=== PATIENT | female | born 1945 | race Caucasian/White ===

== ENCOUNTER → 2023-12-01 11:35 | Outpatient (REF) | payer MEDICARE, BC, SELFPAY ==
[2023-12-01 19:45] LABS: Urine Albumin Negative (Neg - Trace); Urine Bilirubin Negative (Negative); Urine Character Clear (Clear); Urine Color Yellow; Urine Glucose Negative (Negative); Urine Ketone Negative (Negative); Urine Leukocyte 2+ (Negative); Urine Nitrite Negative (Negative); Urine Occult Blood Negative (Negative); Urine Urobilinogen Negative (Neg - 1+)
[2023-12-01 20:03] LABS: Urine Bacteria Few (Negative); Urine Red Blood Cell 0-2 /HPF (0-2)
== END ==
LOC: CLAB 11:35
PROVIDERS: ATTENDING PHYSICIAN Physician Assistant
DX: R35.0 Frequency of micturition (principal)
CPT/HCPCS: 81003; 81015; 87086

== ENCOUNTER → 2023-12-11 08:47 | Outpatient (REF) | payer MEDICARE, BC, SELFPAY ==
[2023-12-11 10:09] LABS: % Basophils 0.7 % (0-2); % Eosinophils 3.1 % (0-6); % Immature Granulocytes 0.3 % (0-0.5); % Lymphocytes 23.7 % (20.5-51.1); % Monocytes 8.6 % (1.7-9.3); % Neutrophils 63.6 % (42.2-75.2); Absolute Eosinophils 0.2 10^3/uL (0-0.7); Absolute Lymphocytes 1.4 10^3/uL (1.2-3.4); Absolute Monocytes 0.5 10^3/uL (0.1-0.6); Absolute Neutrophils 3.6 10^3/uL (1.4-6.5); Hematocrit 32.5 % (37.0-47.0); Hemoglobin 10.3 g/dL (12.0-16.0); Mean Corp Hgb Conc. 31.7 g/dL (33.0-37.0); Mean Corpuscular Hgb 21.1 pg (27.0-31.0); Mean Corpuscular Volume 66.5 fL (81.0-99.0); Mean Platelet Volume 11.9 fL (7.4-10.4); Nucleated Red Blood Cells % 0 %; Platelet Count 202 10^3/uL (130-400); Red Blood Cell Count 4.89 10^6/uL (4.20-5.40); Red Cell Dist. Width 16.5 % (11.5-14.5); White Blood Cell Count 5.7 10^3/uL (4.8-10.8)
[2023-12-11 10:38] LABS: ALT (SGPT) 23 U/L (0-35); AST (SGOT) 25 U/L (14-36); Alkaline Phosphatase 77 U/L (38-126); Blood Urea Nitrogen 16 mg/dl (7-17); Calcium 9.5 mg/dl (8.4-10.2); Carbon Dioxide 27 mmol/L (22-30); Chloride 104 mmol/L (98-107); Glucose 110 mg/dl (70-99); HDL Cholesterol 60 mg/dl; LDL Cholesterol, Calculated 106 mg/dl; Potassium 4.6 mmol/L (3.5-5.1); Sodium 139 mmol/L (135-145); Total Bilirubin 0.7 mg/dl (0.2-1.3); Total Cholesterol 186 mg/dl (50-199); Total Protein 6.6 g/dl (6.3-8.2); Triglyceride 104 mg/dl (10-149); Very Low Density Lipoprotein 20 mg/dl (0-30); eGFR > 60.00
[2023-12-11 10:55] LABS: Free T4 1.85 ng/dl (0.78-2.19)
[2023-12-11 11:09] LABS: TSH 0.18 uIU/ml (0.47-4.68)
== END ==
LOC: RAD 08:47
PROVIDERS: ATTENDING PHYSICIAN Physician Assistant
DX: M79.675 Pain in left toe(s) (principal); E03.9 Hypothyroidism, unspecified; D56.9 Thalassemia, unspecified; G43.809 Other migraine, not intractable, without status migrainosus; Z13.6 Encounter for screening for cardiovascular disorders; N95.9 Unspecified menopausal and perimenopausal disorder; R35.0 Frequency of micturition
CPT/HCPCS: 36415; 73660; 80053; 80061; 84439; 84443; 85025

== ENCOUNTER → 2024-01-05 10:17 | Outpatient (REF) | payer MEDICARE, BC, SELFPAY | LOC: RAD 10:17 | PROVIDERS: ATTENDING PHYSICIAN Physician Assistant | DX: N95.9 Unspecified menopausal and perimenopausal disorder (principal) | CPT/HCPCS: 77080 ==

== ENCOUNTER → 2024-03-18 08:34 | Outpatient (REF) | payer MEDICARE, BC, SELFPAY ==
[2024-03-18 10:19] LABS: Blood Urea Nitrogen 19 mg/dl (7-17)
== END ==
LOC: REG 08:34
PROVIDERS: ATTENDING PHYSICIAN Psychiatry & Neurology Neurology; FAMILY PHYSICIAN Physician Assistant
DX: R42 Dizziness and giddiness (principal); G45.0 Vertebro-basilar artery syndrome
CPT/HCPCS: 36415; 82565; 84520

== ENCOUNTER → 2024-04-02 17:12 | Outpatient (REF) | payer MEDICARE, BC, SELFPAY | LOC: PAVMRI 17:12 | PROVIDERS: ATTENDING PHYSICIAN Psychiatry & Neurology Neurology; FAMILY PHYSICIAN Physician Assistant | DX: R42 Dizziness and giddiness (principal); G45.0 Vertebro-basilar artery syndrome | CPT/HCPCS: 70544; 70547 ==

== ENCOUNTER → 2024-04-03 18:15 | Outpatient (REF) | payer MEDICARE, BC, SELFPAY | LOC: MRI 18:15 | PROVIDERS: ATTENDING PHYSICIAN Psychiatry & Neurology Neurology | DX: R42 Dizziness and giddiness (principal); G45.0 Vertebro-basilar artery syndrome | CPT/HCPCS: 70553; A9575 ==

== ENCOUNTER → 2024-09-18 09:57 | Outpatient (REF) | payer MEDICARE, BC, SELFPAY ==
[2024-09-18 10:44] LABS: Hematocrit 34.8 % (37.0-47.0); Hemoglobin 10.8 g/dL (12.0-16.0); Mean Corpuscular Hgb 20.7 pg (27.0-31.0); Mean Corpuscular Volume 66.7 fL (81.0-99.0); Platelet Count 185 10^3/uL (130-400); Red Blood Cell Count 5.22 10^6/uL (4.20-5.40); Red Cell Dist. Width 15.4 % (11.5-14.5); White Blood Cell Count 5.4 10^3/uL (4.8-10.8)
[2024-09-18 11:01] LABS: Erythrocyte Sed Rate 5 mm/hour (0-20)
[2024-09-18 12:38] LABS: ALT (SGPT) 22 U/L (0-35); AST (SGOT) 24 U/L (14-36); Albumin 4.2 g/dl (3.5-5.0); Alkaline Phosphatase 68 U/L (38-126); Blood Urea Nitrogen 17 mg/dl (7-17); Direct Bilirubin 0.1 mg/dl (0.0-0.4); Total Bilirubin 0.6 mg/dl (0.2-1.3); Total Protein 6.7 g/dl (6.3-8.2)
== END ==
LOC: REG 09:57
PROVIDERS: ATTENDING PHYSICIAN Psychiatry & Neurology Neurology
DX: R42 Dizziness and giddiness (principal)
CPT/HCPCS: 36415; 80076; 82565; 84520; 85027; 85652; 86140

== ENCOUNTER → 2025-01-28 09:34 | Outpatient (REF) | payer MEDICARE, BC, SELFPAY ==
[2025-01-28 10:54] LABS: % Basophils 0.8 % (0-2); % Eosinophils 3.1 % (0-6); % Immature Granulocytes 0.4 % (0-0.5); % Lymphocytes 25.9 % (20.5-51.1); % Monocytes 7.7 % (1.7-9.3); % Neutrophils 62.1 % (42.2-75.2); Absolute Eosinophils 0.2 10^3/uL (0-0.7); Absolute Lymphocytes 1.3 10^3/uL (1.2-3.4); Absolute Monocytes 0.4 10^3/uL (0.1-0.6); Hematocrit 32.1 % (37.0-47.0); Mean Corp Hgb Conc. 31.2 g/dL (33.0-37.0); Mean Corpuscular Hgb 20.8 pg (27.0-31.0); Mean Corpuscular Volume 66.7 fL (81.0-99.0); Nucleated Red Blood Cells % 0 %; Platelet Count 200 10^3/uL (130-400); Red Blood Cell Count 4.81 10^6/uL (4.20-5.40); Red Cell Dist. Width 15.9 % (11.5-14.5); White Blood Cell Count 4.8 10^3/uL (4.8-10.8)
[2025-01-28 11:35] LABS: ALT (SGPT) 19 U/L (0-35); AST (SGOT) 20 U/L (14-36); Albumin 4.3 g/dl (3.5-5.0); Alkaline Phosphatase 71 U/L (38-126); Blood Urea Nitrogen 21 mg/dl (7-17); Calcium 8.8 mg/dl (8.4-10.2); Carbon Dioxide 24 mmol/L (22-30); Chloride 108 mmol/L (98-107); Glucose 105 mg/dl (70-99); HDL Cholesterol 52 mg/dl; Potassium 4.7 mmol/L (3.5-5.1); Sodium 139 mmol/L (135-145); Total Bilirubin 0.6 mg/dl (0.2-1.3); Total Cholesterol 198 mg/dl (50-199); Total Protein 6.7 g/dl (6.3-8.2); eGFR > 60.00
[2025-01-28 11:44] LABS: Free T4 1.66 ng/dl (0.78-2.19)
[2025-01-28 11:58] LABS: TSH 0.12 uIU/ml (0.47-4.68)
[2025-01-28 12:07] LABS: LDL Cholesterol, Calculated 125 mg/dl; Triglyceride 108 mg/dl (10-149); Very Low Density Lipoprotein 21 mg/dl (0-30)
[2025-01-28 12:24] LABS: Glycohemoglobin (HgbA1c) 5.2 % (4.0-5.6)
== END ==
LOC: RAD 09:34
PROVIDERS: ATTENDING PHYSICIAN Physician Assistant
DX: E03.9 Hypothyroidism, unspecified (principal); D56.9 Thalassemia, unspecified; G89.29 Other chronic pain; M25.561 Pain in right knee; R73.01 Impaired fasting glucose; Z13.220 Encounter for screening for lipoid disorders; Z00.00 Encounter for general adult medical examination without abnormal findings
CPT/HCPCS: 36415; 73564; 80053; 80061; 83036; 84439; 84443; 85025

== ENCOUNTER → 2025-07-10 09:45 | Outpatient (REF) | payer MEDICARE, BC, SELFPAY ==
[2025-07-10 11:42] LABS: TSH 0.45 uIU/ml (0.47-4.68)
== END ==
LOC: REG 09:45
PROVIDERS: ATTENDING PHYSICIAN Physician Assistant
DX: R79.89 Other specified abnormal findings of blood chemistry (principal); R19.4 Change in bowel habit; E03.9 Hypothyroidism, unspecified
CPT/HCPCS: 36415; 82784; 83516; 84439; 84443; 86231

== ENCOUNTER 2025-07-23 06:13 | Day surgery (SDC) | payer MEDICARE, BC, SELFPAY | END 2025-07-23 09:46 | disposition home or self-care (01) | LOC: GI 06:13 | PROVIDERS: ATTENDING PHYSICIAN Specialist | DX: R19.4 Change in bowel habit (principal); K57.30 Diverticulosis of large intestine without perforation or abscess without bleeding | CPT/HCPCS: 45380; 88305 ==

== ENCOUNTER → 2025-08-26 11:49 | Outpatient (REF) | payer MEDICARE, SELFPAY ==
[2025-08-26 13:44] LABS: TSH 1.95 uIU/ml (0.47-4.68)
== END ==
LOC: REG 11:49
PROVIDERS: ATTENDING PHYSICIAN Physician Assistant
DX: R79.89 Other specified abnormal findings of blood chemistry (principal); E03.9 Hypothyroidism, unspecified
CPT/HCPCS: 36415; 84439; 84443